=== PATIENT | male | born 1965 | race Caucasian/White ===

== ENCOUNTER 2018-10-04 11:38 | Emergency (ER) | payer OTHER, SELFPAY ==
[2018-10-04 11:42] VITALS: BP 144/102; PULSE 104; RESP 20; TEMP 36.7; O2SAT 100
[2018-10-04] MEDS: HYDROmorphone 2 MG/ML VIAL ×2 (11:58→13:49)
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
--- NOTE | 2018-10-04 12:14 | NUR.NOTE ---
Nursing Note: Dr. Dempsey at bedside, applied FRANCINE splint, tolerated well. Patient at Xray at this time.
[2018-10-04 13:12] VITALS: BP 156/109; PULSE 71; RESP 20; TEMP 36.7; O2SAT 100
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
--- NOTE | 2018-10-04 14:50 | DI.VRAD_ITS ---
EXAM: XR Left Ankle, 1 or 2 Views EXAM DATE/TIME: 10/04/2018 2:19 PM CLINICAL HISTORY: 53 years old, male; Signs and symptoms; Other: Post reduction TECHNIQUE: Imaging protocol: XR Left ankle. Views: 1 or 2 views. COMPARISON: CR 10/04/2018 1:00 PM FINDINGS: Bones/joints: The fracture dislocation of the ankle has been reduced. There is improved alignment of the distal fibular fracture. The tibiotalar joint is malaligned. Medial malleolar fracture is aligned. Persistent displacement of ossific fragment posterior to the tibia. Soft tissues: Soft tissue swelling of the ankle Study viewed through splint IMPRESSION: The fracture dislocation of the ankle has been reduced. There is improved alignment of the distal fibular fracture. The tibiotalar joint is malaligned. Medial malleolar fracture is aligned. Persistent displacement of ossific fragment posterior to the tibia. Dictated and Authenticated by: Kong Child MD. Ordering:STAN Starr MD
[2018-10-04 15:21] VITALS: BP 141/87; PULSE 110; RESP 18; O2SAT 99
== END 2018-10-04 15:31 | disposition home or self-care (01) ==
PROVIDERS: Emergency Provider Emergency Medicine
DX: S97.02XA Crushing injury of left ankle, initial encounter (principal); S82.842A Displaced bimalleolar fracture of left lower leg, initial encounter for closed fracture; S93.05XA Dislocation of left ankle joint, initial encounter; V88.8XXA Person injured in other specified noncollision transport accidents involving motor vehicle, nontraffic, initial encounter; W23.0XXA Caught, crushed, jammed, or pinched between moving objects, initial encounter
CPT/HCPCS: 27810; 76000; 96372; 73590; 73600; 73610; 73630; E0114